=== PATIENT | male | born 1995 | race African-American/Black ===

== ENCOUNTER 2023-09-01 21:24 | Emergency (ER) | payer SELFPAY ==
[~2023-09-01] VITALS: Ht 177.8 cm; Wt 74.8 kg
[2023-09-01 22:27] VITALS: BP 129/71; TEMP 98.2; O2SAT 100
[2023-09-02 15:38] LABS: HIV-1 p24 ANTIGEN NON REACTIVE (NONREACTIVE); HIV-1/2 ANTIBODY NON REACTIVE (NONREACTIVE)
== END 2023-09-01 23:51 | disposition home or self-care (01) ==
LOC: ER 21:29
DX: A64 Unspecified sexually transmitted disease (principal); Z60.2 Problems related to living alone
CPT/HCPCS: 36415; 87806